=== PATIENT | male | born 1980 | race Caucasian/White ===

== ENCOUNTER 2021-03-16 08:49 | Emergency (ER) | payer MEDICAID, OTHER ==
[~2021-03-16] VITALS: Ht 177.8 cm; Wt 72.6 kg
[2021-03-16 09:34] LABS: Hematocrit 43.9 % (41.0-53.0); Hemoglobin 14.6 g/dL (13.5-17.5); Mean Corpuscular Hemoglobin 26.2 pg (28.0-32.0); Mean Corpuscular Hgb Conc. 33.2 g/dL (32.0-36.0); Mean Corpuscular Volume 78.8 fL (80.0-100.0); Red Blood Cells 5.57 10^6/uL (4.5-5.90); White Blood Cell 3.1 10^3/uL (4.4-10.8)
[2021-03-16 09:38] LABS: Red Cell Distribution Width 20.4 % (11.8-14.3)
[2021-03-16 09:39] LABS: Basophils % (manual) 0 (0.0-2.0); Blast Cells 0; Metamyelocytes % 0; Myelocytes % 0; Promyelocytes % 0
[2021-03-16 09:52] VITALS: BP 142/97
[2021-03-16 09:59] LABS: Albumin 3.6 g/dL (3.4-5.0); Calcium 8.4 mg/dL (8.5-10.1)
[2021-03-16] MEDS ORDERED: LIDOCAINE VISCOUS 2% 15ML UD PO ONE (10:00)
[2021-03-16] MEDS ORDERED: ALUM & MAG HYDROX-SIMETH LIQ(MAALOX) 30 ML PO ONE (10:00)
[2021-03-16] MEDS ORDERED: FOLIC ACID 1 MG, MULTIPLE VITAMIN 10 ML, MAGNESIUM SULF SDV 50% 8 MEQ, THIAMINE INJ 100... INJ SCH ×5 (10:00)
[2021-03-16] MEDS ORDERED: SODIUM CHLORIDE 0.9% 1,000 ML IV ONE (10:00)
[2021-03-16] MEDS ORDERED: DONNATAL 5ml ORAL Elix (BELLADONNA ALK-PHENOBARB) PO ONE (10:00)
[2021-03-16 10:01] LABS: Salicylate < 1.7 mg/dL (2.8-20.0)
[2021-03-16 10:04] LABS: BUN/Creatinine Ratio 9.8; Bilirubin, Total 0.2 mg/dL (0.2-1.0); Total Protein 8.1 g/dL (6.4-8.2)
[2021-03-16 10:23] LABS: Potassium 2.8 mmol/L (3.5-5.1)
[2021-03-16 10:24] LABS: Urine WBC None Seen /hpf (0 - 3)
[2021-03-16] MEDS ORDERED: POTASSIUM EFFERVESENT TAB 25 MEQ PO ONE (10:30)
[2021-03-16 10:32] LABS: Acetaminophen < 2.0 ug/mL (10-30)
[2021-03-16 10:40] LABS: Urine Bacteria FEW /hpf (None Seen); Urine Blood Negative /uL (Negative); Urine Specific Gravity 1.003 (1.001-1.035)
[2021-03-16 10:41] LABS: Amphetamine Screen, Urine NEGATIVE (NEGATIVE); Barbiturate Scree,Urine NEGATIVE (NEGATIVE); Benzodiazephine Screen, Urine NEGATIVE (NEGATIVE); Cannabinoid Screen, Urine NEGATIVE (NEGATIVE); Cocaine Screen, Urine NEGATIVE (NEGATIVE); Opiate Scree,Urine NEGATIVE (NEGATIVE); Phencyclidine Screen, Urine NEGATIVE (NEGATIVE)
[2021-03-16] MEDS ORDERED: FOLIC ACID 1 MG, MAGNESIUM SULF SDV 50% 8 MEQ, THIAMINE INJ 100 MG in SODIUM CHLORIDE 0... INJ SCH (12:00)
[2021-03-16 13:34] LABS: Band Neutrophils % (manual) 1; Eosinophils % (manual) 2 (0-7); Lymphocytes % (manual) 54 (10.0-50.0); Monocytes % (manual) 10 (0-12); Reactive Lymphocytes 3
[2021-03-16] MEDS ORDERED: ACETAMINOPHEN 500 MG TAB PO ONE ×2 (14:38→14:45)
[2021-03-16 18:26] LABS: BUN/Creatinine Ratio 9.4; Calcium 7.6 mg/dL (8.5-10.1); Potassium 3.7 mmol/L (3.5-5.1)
== END 2021-03-16 19:24 | disposition left against medical advice (07) ==
LOC: ER 08:49 → EDBD 08:49 → ER 19:24
DX: K29.20 Alcoholic gastritis without bleeding (principal); F10.121 Alcohol abuse with intoxication delirium; E87.6 Hypokalemia; R73.9 Hyperglycemia, unspecified; Y90.8 Blood alcohol level of 240 mg/100 ml or more
CPT/HCPCS: 36415; 80048; 80053; 80307; 80320; 80329; 81001; 85007; 85027; 93005; 96361; 96365; 96366; 99284; J3411; J3475; J7030

== ENCOUNTER 2021-03-17 07:19 | Emergency (ER) | payer MEDICAID ==
[~2021-03-17] VITALS: Ht 177.8 cm; Wt 74.8 kg
[2021-03-17 07:26] VITALS: BP 138/84
[2021-03-17] MEDS ORDERED: ACETAMINOPHEN 325 MG TAB PO ONE (07:45)
[2021-03-17 08:03] LABS: Basophils # (auto) 0.1 10 ^3/uL (0-0.2); Eosinophils # (auto) 0.1 10 ^3/uL (0-0.8); Lymphocytes # (auto) 1.3 10 ^3/uL (0.4-5.4); Monocytes # (auto) 0.2 10 ^3/uL (0-1.3); Monocytes % (auto) 9.9 % (0.0-12.0); Neutrophils # (auto) 0.7 10 ^3/uL (1.6-8.6); White Blood Cell 2.4 10^3/uL (4.4-10.8)
[2021-03-17 08:04] LABS: Basophils % (auto) 2.4 % (0.0-2.0); Eosinophils % (auto) 2.8 % (0.0-7.0); Hemoglobin 13.3 g/dL (13.5-17.5); Lymphocytes % (auto) 53.7 % (10.0-50.0); Mean Corpuscular Hemoglobin 25.9 pg (28.0-32.0); Mean Corpuscular Hgb Conc. 32.6 g/dL (32.0-36.0); Mean Corpuscular Volume 79.7 fL (80.0-100.0); Neutrophils % (auto) 31.2 % (37.0-80.0); Nucleated Red Blood Cells % 0.1 %; Red Blood Cells 5.14 10^6/uL (4.5-5.90); Red Cell Distribution Width 20.9 % (11.8-14.3)
[2021-03-17 08:26] LABS: Albumin 3.4 g/dL (3.4-5.0); Calcium 7.8 mg/dL (8.5-10.1); Potassium 3.3 mmol/L (3.5-5.1)
[2021-03-17 08:29] LABS: BUN/Creatinine Ratio 6.2; Bilirubin, Total 0.2 mg/dL (0.2-1.0); Total Protein 7.1 g/dL (6.4-8.2)
== END 2021-03-17 09:53 | disposition left against medical advice (07) ==
LOC: EDBD 07:19 → ER 07:19
DX: R51.9 Headache, unspecified (principal); R10.9 Unspecified abdominal pain; Z53.21 Procedure and treatment not carried out due to patient leaving prior to being seen by health care provider
CPT/HCPCS: 36415; 74176; 80053; 80320; 85025

== ENCOUNTER 2021-03-17 11:18 | Emergency (ER) | payer MEDICAID ==
[~2021-03-17] VITALS: Ht 170.2 cm; Wt 74.8 kg
[2021-03-17] MEDS ORDERED: SODIUM CHLORIDE 0.9% 1,000 ML IVB ONE (11:30)
[2021-03-17 11:44] LABS: Basophils # (auto) 0.1 10 ^3/uL (0-0.2); Eosinophils # (auto) 0.1 10 ^3/uL (0-0.8); Lymphocytes # (auto) 1.2 10 ^3/uL (0.4-5.4); Nucleated Red Blood Cells % 0.2 %; White Blood Cell 2.3 10^3/uL (4.4-10.8)
[2021-03-17 11:45] LABS: Basophils % (auto) 2.9 % (0.0-2.0); Eosinophils % (auto) 4.3 % (0.0-7.0); Hematocrit 41.4 % (41.0-53.0); Hemoglobin 13.3 g/dL (13.5-17.5); Lymphocytes % (auto) 49.9 % (10.0-50.0); Mean Corpuscular Hemoglobin 25.8 pg (28.0-32.0); Mean Corpuscular Hgb Conc. 32.2 g/dL (32.0-36.0); Monocytes # (auto) 0.2 10 ^3/uL (0-1.3); Monocytes % (auto) 9.4 % (0.0-12.0); Neutrophils # (auto) 0.8 10 ^3/uL (1.6-8.6); Neutrophils % (auto) 33.5 % (37.0-80.0); Red Blood Cells 5.18 10^6/uL (4.5-5.90)
[2021-03-17 11:51] LABS: Red Cell Distribution Width 20.5 % (11.8-14.3)
[2021-03-17 11:59] LABS: Albumin 3.3 g/dL (3.4-5.0); Calcium 7.8 mg/dL (8.5-10.1); Potassium 3.4 mmol/L (3.5-5.1)
[2021-03-17 12:03] LABS: BUN/Creatinine Ratio 4.7; Bilirubin, Total 0.2 mg/dL (0.2-1.0); Total Protein 7.2 g/dL (6.4-8.2)
[2021-03-17 13:45] LABS: Amphetamine Screen, Urine NEGATIVE (NEGATIVE); Barbiturate Scree,Urine NEGATIVE (NEGATIVE); Benzodiazephine Screen, Urine NEGATIVE (NEGATIVE); Cannabinoid Screen, Urine NEGATIVE (NEGATIVE); Cocaine Screen, Urine NEGATIVE (NEGATIVE); Opiate Scree,Urine NEGATIVE (NEGATIVE); Phencyclidine Screen, Urine NEGATIVE (NEGATIVE)
[2021-03-17 15:06] VITALS: BP 144/79
== END 2021-03-17 15:07 | disposition home or self-care (01) ==
LOC: EDUNIT# 11:18 → EDBD 11:18 → ER 11:18
DX: F10.10 Alcohol abuse, uncomplicated (principal); Y90.8 Blood alcohol level of 240 mg/100 ml or more
CPT/HCPCS: 36415; 80053; 80307; 80320; 85025; 96360; 99283; J7030

== ENCOUNTER 2021-03-17 21:14 | Emergency (ER) | payer MEDICAID ==
[~2021-03-17] VITALS: Ht 177.8 cm; Wt 77.1 kg
[2021-03-17] MEDS ORDERED: diphenhdrAMINE HCL 50 MG/1 ML VL IV ONE (21:45)
[2021-03-17] MEDS ORDERED: LORazepam 2MG/ML-1ML VIAL IV ONE (21:45)
[2021-03-17] MEDS ORDERED: HALOPERIDOL LACTATE 5 MG/ML INJ VIAL IM ONE (21:45)
[2021-03-17 22:35] LABS: Basophils # (auto) 0 10 ^3/uL (0-0.2); Basophils % (auto) 0.6 % (0.0-2.0); Eosinophils # (auto) 0.1 10 ^3/uL (0-0.8); Eosinophils % (auto) 2.9 % (0.0-7.0); Hematocrit 43.3 % (41.0-53.0); Lymphocytes # (auto) 1.7 10 ^3/uL (0.4-5.4); Lymphocytes % (auto) 40.9 % (10.0-50.0); Mean Corpuscular Hemoglobin 25.8 pg (28.0-32.0); Mean Corpuscular Hgb Conc. 32.4 g/dL (32.0-36.0); Mean Corpuscular Volume 79.8 fL (80.0-100.0); Monocytes # (auto) 0.3 10 ^3/uL (0-1.3); Monocytes % (auto) 6.7 % (0.0-12.0); Neutrophils # (auto) 2.1 10 ^3/uL (1.6-8.6); Neutrophils % (auto) 48.9 % (37.0-80.0); Nucleated Red Blood Cells % 0.1 %; Red Blood Cells 5.43 10^6/uL (4.5-5.90); Red Cell Distribution Width 21.3 % (11.8-14.3); White Blood Cell 4.2 10^3/uL (4.4-10.8)
[2021-03-17 22:56] LABS: Acetaminophen < 2.0 ug/mL (10-30); Salicylate < 1.7 mg/dL (2.8-20.0)
[2021-03-17 22:57] LABS: Albumin 3.8 g/dL (3.4-5.0); Calcium 8.1 mg/dL (8.5-10.1); Magnesium 2.5 mg/dL (1.6-2.6); Potassium 3.6 mmol/L (3.5-5.1)
[2021-03-17 23:02] LABS: BUN/Creatinine Ratio 4.2; Bilirubin, Total 0.3 mg/dL (0.2-1.0); Total Protein 7.5 g/dL (6.4-8.2)
[2021-03-18 06:59] LABS: Amphetamine Screen, Urine NEGATIVE (NEGATIVE); Barbiturate Scree,Urine NEGATIVE (NEGATIVE); Benzodiazephine Screen, Urine NEGATIVE (NEGATIVE); Cannabinoid Screen, Urine NEGATIVE (NEGATIVE); Cocaine Screen, Urine NEGATIVE (NEGATIVE); Opiate Scree,Urine POSITIVE (NEGATIVE); Phencyclidine Screen, Urine NEGATIVE (NEGATIVE)
[2021-03-18 07:07] LABS: Alcohol, Urine < 3.0 mg/dL (0-10)
[2021-03-18 12:00] VITALS: BP 141/90
== END 2021-03-18 15:05 | disposition home or self-care (01) ==
LOC: ER 21:14 → EDBD 21:14 → ER 03-18 15:04
DX: R45.851 Suicidal ideations (principal); F10.10 Alcohol abuse, uncomplicated; F32.9 Major depressive disorder, single episode, unspecified; Y90.0 Blood alcohol level of less than 20 mg/100 ml
CPT/HCPCS: 36415; 80053; 80307; 80320; 80329; 83735; 85025; 96372; 96374; 96375; 99285; J1200; J1630; J2060